=== PATIENT | male | born 1995 | race African-American/Black ===

== ENCOUNTER 2023-01-06 21:15 | Emergency (ER) | payer SELFPAY | END 2023-01-06 23:38 | disposition home or self-care (01) | LOC: CSHERS 21:15 | DX: K64.9 Unspecified hemorrhoids (principal); F17.210 Nicotine dependence, cigarettes, uncomplicated | CPT/HCPCS: 99282 ==

== ENCOUNTER 2023-02-17 17:39 | Emergency (ER) | payer SELFPAY ==
[2023-02-17 19:38] LABS: SARS-CoV-2 NAA Rapid Test DETECTED (NotDetected)
[2023-02-17] MEDS ORDERED: Dexamethasone 10 MG/ML VIAL ONE (20:56)
== END 2023-02-17 20:58 | disposition home or self-care (01) ==
LOC: CSHERS 17:39
DX: U07.1 COVID-19 (principal); F17.210 Nicotine dependence, cigarettes, uncomplicated
CPT/HCPCS: 99283; J1100

== ENCOUNTER 2024-01-07 19:08 | Observation (INO) | payer SELFPAY ==
[~2024-01-07 19:08] MED LIST: Iopamidol 300 61% 100 ML VIAL FS ONE
[2024-01-07 20:21] LABS: #Basophils 0.04 10x3/uL (0.0-0.2); #Eosinphils 0.12 10x3/uL (0.0-0.5); #Monocytes 1.04 10x3/uL (0.0-1.1); #Neutrophils 8.23 10x3/uL (1.5-8.4); %Basophils 0.3 % (0.0-2.0); %Eosinophils 0.9 % (0.0-6.0); %Lymphocytes 25.9 % (18.0-47.0); %Monocytes 8.1 % (0.0-10.0); %Neutrophils 64.4 % (40.0-75.0); Hematocrit 41.6 % (38.8-50.0); Hemoglobin 14.8 g/dL (13.5-17.5); Mean Corpuscular HGB CONC 35.6 g/dL (32.0-36.0); Mean Corpuscular Hemoglobin 30.9 pg (27.0-33.0); Mean Corpuscular Volume 86.8 fL (81.2-95.1); Mean Platelet Volume 8.5 fL (7.4-10.4); Platelet Count 290 10x3/uL (150-450); RBC Distribution Width 12.7 % (11.5-14.5); Red Blood Cell (RBC) Count 4.79 10x6/uL (4.32-5.72); White Blood Cell (WBC) Count 12.8 10x3/uL (3.5-10.5)
[2024-01-07 20:29] LABS: ALT (SGPT) 7 U/L (8-55); AST (SGOT) 18 U/L (5-34); Albumin 3.7 g/dL (3.5-5.0); Alkaline Phosphatase 63 U/L (40-110); Anion Gap 14 mmol/L (10-20); BUN (Urea Nitrogen) 13 mg/dL (8.9-20.6); Bilirubin, Total 0.2 mg/dL (0.2-1.2); Calc. Creatinine Clearance 0 mL/min (70-130); Calcium 9.8 mg/dL (7.8-10.44); Carbon Dioxide 26 mmol/L (22-29); Chloride 104 mmol/L (98-107); Estimated GFR 102; Globulin 2.8 g/dL (2.4-3.5); Glucose 92 mg/dL (70-105); Potassium 4.2 mmol/L (3.5-5.1); Protein, Total 6.5 g/dL (6.0-8.3); Sodium 140 mmol/L (136-145)
[2024-01-07] MEDS ORDERED: Morphine 4 MG/ML VIAL ONE (22:23)
[2024-01-07] MEDS ORDERED: Piperacillin/Tazobactam 3.375 GM VIAL ONE (22:24)
[2024-01-07] MEDS ORDERED: Ondansetron PF 4 MG/2 ML Vial ONE (22:24)
[2024-01-08 00:13] VITALS: BMI 26.6
[2024-01-08] MEDS ORDERED: Ondansetron PF 4 MG/2 ML Vial IVP PRN (00:52)
[2024-01-08] MEDS: Lactated Ringer's 1,000 ML IV SCH (01:16)
[2024-01-08] MEDS: Piperacillin/Tazobactam 3.375 GM in Sodium Chloride 0.9% 100 ML IVPB SCH (02:38)
[2024-01-08] MEDS: Morphine 4 MG/ML VIAL SLOW IVP PRN (04:05)
[2024-01-08] MEDS ORDERED: EPINEPHrine 1 MG/ML VIAL ONE (09:19)
[2024-01-08] MEDS ORDERED: Bupivacaine PF 0.5% 30 ML VIAL ONE (09:20)
[2024-01-08] MEDS ORDERED: SUGAMMADEX SODIUM 200 MG/2 ML VIAL ONE (09:22)
[2024-01-08] MEDS ORDERED: fentaNYL 50 mcg/mL 1 mL Vial ONE ×4 (09:23→11:22)
[2024-01-08] MEDS ORDERED: Rocuronium Bromide 10 MG/ML (10ML VIAL) ONE (09:23)
[2024-01-08] MEDS ORDERED: Lidocaine 1% PF 5 ML VIAL ONE (09:23)
[2024-01-08] MEDS ORDERED: PROPOFOL 20 ML ONE ×2 (09:23→09:55)
[2024-01-08] MEDS ORDERED: Midazolam HCl 2 mg/2 ml Vial ONE (09:23)
[2024-01-08] MEDS ORDERED: Dexamethasone 4 mg/ml Vial ONE (09:23)
[2024-01-08] MEDS ORDERED: Ondansetron PF 4 MG/2 ML Vial ONE (09:23)
[2024-01-08] MEDS ORDERED: Ketorolac Tromethamine 30 MG (1 mL) VIAL ONE (11:13)
[2024-01-08] MEDS ORDERED: Morphine 4 MG/ML VIAL SLOW IVP PRN (11:19)
[2024-01-08] MEDS ORDERED: Acetaminophen 325 MG TAB PO PRN (11:19)
[2024-01-08] MEDS ORDERED: Morphine 2 MG/ML VIAL SLOW IVP PRN (11:19)
[2024-01-08] MEDS: HYDROcodone/Acetaminophen 10/325 mg Tablet PO PRN (12:35)
[2024-01-08 13:16] VITALS: BP 123/77; TEMP 97.5
[2024-01-08] MEDS ORDERED: Ketorolac Tromethamine 30 MG (1 mL) VIAL IVP SCH (18:00)
== END 2024-01-08 13:10 | disposition home or self-care (01) ==
LOC: CSHERS 19:08 → CSHERHOLD 22:28 → CSHTELE 23:53
PROVIDERS: ADMIT Surgery; ATTEND Surgery
PROC: 0DTJ4ZZ Resection of Appendix, Percutaneous Endoscopic Approach (ICD-10-PCS; principal; 2024-01-08)
DX: K35.80 Unspecified acute appendicitis (principal); Z79.899 Other long term (current) drug therapy; F17.200 Nicotine dependence, unspecified, uncomplicated
CPT/HCPCS: 36415; 74177; 80053; 85025; 88304; 96376; A4649; G0378; J0171; J0665; J1100; J1885; J2250; J2272; J2405; J2543; J2704; J3010; J7120; Q9967

== ENCOUNTER 2024-12-30 14:58 | Emergency (ER) | payer SELFPAY | END 2024-12-30 15:37 | disposition home or self-care (01) | LOC: CSHERS 14:58 | DX: B35.6 Tinea cruris (principal); B35.4 Tinea corporis; F17.210 Nicotine dependence, cigarettes, uncomplicated | CPT/HCPCS: 99282 ==